=== PATIENT | male | born 1935 | race Caucasian/White ===

== ENCOUNTER → 2017-01-15 | Outpatient (CLI) | payer OTHER ==
[2017-01-15 18:25] LABS: ALBUMIN 3.4 GM/DL (3.2-5.2); ALBUMIN/GLOBULIN RATIO 1.21 (1.00-1.93); BILIRUBIN,TOTAL 1.1 MG/DL (0.2-1.0); CALCIUM LEVEL 8.7 MG/DL (8.8-10.2); CREATININE FOR GFR 1.78 MG/DL (0.70-1.30); GLOMERULAR FILTRATION RATE 39.4 (>42); POTASSIUM SERUM 4.1 MEQ/L (3.5-5.1); TOTAL PROTEIN 6.2 GM/DL (6.4-8.2)
== END ==
LOC: M WUC 08:31
PROVIDERS: ATTEND Physician Assistant
DX: R60.0 Localized edema (principal); I10 Essential (primary) hypertension; E11.9 Type 2 diabetes mellitus without complications

== ENCOUNTER → 2017-07-26 | Outpatient (CLI) | payer MEDICARE, OTHER ==
--- NOTE | 2017-07-26 16:18 | REP ---
Chest two views HISTORY: Heart failure Comparison: 05/02/2012 The lungs are clear. The cardiac silhouette is enlarged . The pulmonary vasculature is normal in appearance. The bony structure is intact. IMPRESSION: Cardiomegaly. Signed by Cholo Laird MD 07/26/2017 04:10 P
[2017-07-26 19:58] LABS: CALCIUM LEVEL 8.9 MG/DL (8.8-10.2); CREATININE FOR GFR 1.91 MG/DL (0.70-1.30); GLOMERULAR FILTRATION RATE 36.3 (>35)
== END ==
LOC: M WUC 15:43
PROVIDERS: ATTEND Nurse Practitioner Family
DX: I50.30 Unspecified diastolic (congestive) heart failure (principal)

== ENCOUNTER → 2017-08-02 | Outpatient (CLI) | payer MEDICARE, OTHER ==
[2017-08-02 10:35] LABS: CALCIUM LEVEL 8.4 MG/DL (8.8-10.2); CREATININE FOR GFR 2.09 MG/DL (0.70-1.30); GLOMERULAR FILTRATION RATE 32.7 (>35); POTASSIUM SERUM 3.7 MEQ/L (3.5-5.1)
== END ==
LOC: M WUC 08:03
PROVIDERS: ATTEND Nurse Practitioner Family
DX: I50.30 Unspecified diastolic (congestive) heart failure (principal)

== ENCOUNTER → 2017-08-21 | Outpatient (CLI) | payer OTHER ==
[2017-08-21 09:59] LABS: CALCIUM LEVEL 8.2 MG/DL (8.8-10.2); CREATININE FOR GFR 2.01 MG/DL (0.70-1.30); GLOMERULAR FILTRATION RATE 34.2 (>35); POTASSIUM SERUM 3.9 MEQ/L (3.5-5.1)
== END ==
LOC: M WUC 08:05
PROVIDERS: ATTEND Nurse Practitioner Family
DX: I50.30 Unspecified diastolic (congestive) heart failure (principal)

== ENCOUNTER → 2017-10-22 | Outpatient (CLI) | payer OTHER ==
[2017-10-22 18:20] LABS: CALCIUM LEVEL 8.7 MG/DL (8.8-10.2); CREATININE FOR GFR 2.17 MG/DL (0.70-1.30); GLOMERULAR FILTRATION RATE 31.3 (>35); POTASSIUM SERUM 4.3 MEQ/L (3.5-5.1)
== END ==
LOC: M WUC 08:25
PROVIDERS: ATTEND Nurse Practitioner Family
DX: I50.30 Unspecified diastolic (congestive) heart failure (principal)

== ENCOUNTER 2017-11-06 11:21 | Inpatient (IN) | payer OTHER ==
[~2017-11-06] VITALS: Ht 167.6 cm; Wt 119.3 kg
[~2017-11-06 11:21] MED LIST: LISINOPRIL 10 MG TAB PO SCH
[2017-11-06] MEDS ORDERED: BENA10TA6 PO (11:37)
[2017-11-06] MEDS ORDERED: ALPR0.25 PO (11:37)
[2017-11-06] MEDS ORDERED: METF10004 PO (11:37)
[2017-11-06] MEDS ORDERED: FURO40TA2 PO (11:37)
[2017-11-06] MEDS: NS 1,000 ML IV SCH ×2 (11:54→15:26)
[2017-11-06 11:57] LABS: BASO % 0.4 % (0.0-1.0); EOS % 0.2 % (0.0-3.0); IMMATURE GRANULOCYTE % 0.5 % (0-0); LYMPH # 0.9 10^3/uL (1.5-4.5); LYMPH % 7.6 % (24.0-44.0); MEAN CORPUSCULAR HEMOGLOBIN 30.9 pg (27.0-33.0); MEAN CORPUSCULAR HGB CONC 32.9 g/dl (32.0-36.5); MEAN CORPUSCULAR VOLUME 93.8 fl (80.0-96.0); MONO # 0.8 10^3/uL (0.0-0.8); MONO % 6.9 % (0.0-5.0); NEUTROPHILS # 9.6 10^3/uL (1.8-7.7); NEUTROPHILS % 84.4 % (36.0-66.0); PLATELET COUNT, AUTOMATED 219 10^3/uL (150-450); WHITE BLOOD COUNT 11.4 10^3/uL (4.0-10.0)
[2017-11-06 11:59] LABS: VENOUS BASE EXCESS -4.5 (-2.0-2.0); VENOUS O2 SATURATION 64.9 % (60.0-80.0); VENOUS PARTIAL PRESSURE CO2 45.4 mmHg (38.0-50.0); VENOUS PARTIAL PRESSURE O2 39.3 mmHg (30.0-50.0); VENOUS TOTAL CO2 23.3 MEQ/L (24.0-28.0)
[2017-11-06 12:15] LABS: ALBUMIN 3.4 GM/DL (3.2-5.2); ALBUMIN/GLOBULIN RATIO 0.97 (1.00-1.93); BILIRUBIN,DIRECT 0.4 MG/DL (0.0-0.2); BILIRUBIN,TOTAL 1.2 MG/DL (0.2-1.0); CALCIUM LEVEL 8.8 MG/DL (8.8-10.2); CREATININE FOR GFR 2.47 MG/DL (0.70-1.30); TOTAL PROTEIN 6.9 GM/DL (6.4-8.2)
--- NOTE | 2017-11-06 13:04 | REP ---
CT of the brain without IV contrast: There are no comparisons. There is no hemorrhage. There is no edema, mass effect or midline shift. There are focal zones of hypo attenuation in the periventricular white matter compatible with chronic microvascular ischemia. The ventricles and sulci are dilated compatible with chronic diffuse volume loss. The cortical stripe is unremarkable. The visualized paranasal sinuses and mastoid air cells are clear. Impression: There is no hemorrhage, acute infarct or mass. There is chronic microvascular ischemia and diffuse volume loss. Signed by Jonathan Martínez MD 11/06/2017 12:55 P
--- NOTE | 2017-11-06 13:17 | REP ---
PORTABLE CHEST X-RAY: SINGLE VIEW HISTORY: Fatigue. COMPARISON STUDY: July 26, 2017 FINDINGS: Moderate cardiac enlargement is again observed. This is unchanged. EKG electrodes are seen. Pulmonary vasculature is cephalized. There is no evidence of pleural effusion or pulmonary edema. No infiltrate is seen. IMPRESSION: Cardiomegaly and cephalization. No evidence of pleural effusion or pulmonary edema. No focal infiltrate. Signed by Arsalan Cantrell MD 11/06/2017 03:02 P
[2017-11-06] MEDS ORDERED: NS 1,000 ML IV ONE (14:45)
[2017-11-06 16:26] VITALS: BP 133/66
[2017-11-06] MEDS ORDERED: GLUCOSE 4 GM CHEW TABLET PO PRN (17:00)
[2017-11-06] MEDS ORDERED: GLUCAGON FOR INJ 1 MG VIAL (J1610) SC PRN (17:00)
[2017-11-06] MEDS ORDERED: DEXTROSE 50% 50 ML SYRINGE IV PRN (17:00)
[2017-11-06 17:07] LABS: FREE T4 0.96 NG/DL (0.76-1.46); MAGNESIUM LEVEL 2.3 MG/DL (1.8-2.4)
[2017-11-06] MEDS: FUROSEMIDE 40 MG/4 ML VIAL (J1940) IV SCH ×2 (17:30→20:57)
[2017-11-06] MEDS: CEPHALEXIN 500 MG CAP PO SCH (17:30)
[2017-11-06] MEDS: HumaLOG INSULIN (NovoLOG) PER UNIT SC SCH ×2 (17:43→21:00)
--- NOTE | 2017-11-06 18:04 | HPEPDOC ---
[facility] Medical History & Physical History and Physical Primary care provider: Yusuf Cerda Date of Admission: 11/06/2017 Attending: Dr. Sumanth Hernández CHIEF COMPLAINT: Weakness and fall with inability to get off the floor HISTORY OF PRESENT ILLNESS: Mr. Caldwell is an 82-year-old male who was brought to the emergency department via ambulance. He is accompanied in the room by his 2 nieces Vale Beaulieu and Steph Mcadams who are very involved in his care, and they provide much of the history as well. Apparently he has been getting progressively weaker and weaker over the past 6 months, the onset has been slow and progressive in nature. The past 1 month he has been even worse, and he has been developing significant lower extremity edema. His primary care provider has been increasing his dose of Lasix however it did not seem to slow the process much. He has been sleeping in a chair for the past few months as he is unable to lie down flat. Last night he got up to go to a different room in his house when he suddenly became weak, went to the floor, and then was unable to get up again. He does believe that he had hit his head, his glasses headphone across the room. He did not lose consciousness, but he did fall asleep during the night. He was found this morning by his niece who checks in on him regularly, and the emergency department was called. He was estimated to be on the floor for approximately 12-14 hours. ALLERGIES: Codeine Penicillins, at about the age of 12 after receiving a dose of penicillin he "blacked out" for short period of time, however when he woke up he does not remember having any trouble breathing, nor did he have any rash. He is unsure as to whether this is related to the illness he had, or the treatment with the penicillin. He was brought back to his family physician who recommended that he not take penicillins again, however no further action was necessary at that time. CODE STATUS: DO NOT INTUBATE, DO NOT RESUSCITATE. Greater than 20-30 minutes was spent filling out a MOLST form with the patient, as well as his 2 nieces, one of which is his healthcare proxy (Vale Beaulieu: home: [phone], cell ) his other niece is Steph Mcadams: Home [phone], cell [phone], please contact them for any status changes. PAST MEDICAL HISTORY: Cardiomegaly Left ventricular hypertrophy Hypertension Diabetes mellitus Chronic kidney disease Panic/anxiety attacks with agoraphobia PAST SURGICAL HISTORY: Hernia repair in the remote past SOCIAL HISTORY: He lives at home alone, he suffers from significant agoraphobia, and now it is to the point where he does not leave his home to a distance of greater than one block, this is especially because even if he is not having a panic attack, he has fear of having a panic attack when he is outside of the home. He used to smoke cigars, however he quit approximately 1 year ago. He does drink approximately 2-3 drinks of alcohol daily, sometimes more, sometimes less. He denies any recreational drug use. He does not have any pets in the home. He lives at home alone, but his 2 nieces check in on him essentially on a daily basis. He previously was a restaurant public safety officer. FAMILY HISTORY: His brother had diabetes, CAD, CHF. His father had heart problems. His mother had a stroke. He had a sister with bladder cancer. REVIEW OF SYSTEMS: Constitutional: Patient denies fevers, chills, night sweats, he believes that his baseline weight is approximately 225, therefore he may have gained approximately 50 pounds over the last 6-9 months. HEENT: Patient denies blurred or double vision, transient visual disturbances, postnasal drip, epistaxis, sore throat, difficulty chewing or swallowing food. Cardiovascular: Patient denies chest discomfort/pain, palpitations. He has had exertional dyspnea for years, he does not have dyspnea at rest. Orthopnea has developed over the past 6 months or so as well as edema of the extremities. He does also suffer from paroxysmal nocturnal dyspnea. Respiratory: Patient denies wheezing, cough, hemoptysis, sputum production. Gastrointestinal: Patient denies nausea, vomiting, diarrhea, constipation, abdominal pain, melena, hematochezia, hematemesis, jaundice. Endocrine: Denies polyphagia, polydipsia, polyuria. Denies heat or cold intolerance. PHYSICAL EXAMINATION: Vitals: Temperature 97.6, pulse 58 irregularly irregular, respiratory rate 20, blood pressure 133/66, pulse oximetry 100% on 2 L nasal cannula General: Awake, alert, oriented. He does not appear to be in any acute distress at this time, he is not using any accessory muscles to breathe, however he does become dyspneic even with sitting upright in the bed and requires assistance to sit upright. HEENT: Head normocephalic atraumatic, pupils equally reactive to light and accommodation, conjunctiva are pink, sclera are nonicteric, buccal mucosa is pink and moist with no lesions in the oropharynx, he does have dentures on the top and multiple missing teeth on the bottom. Hearing is grossly intact to conversation. He does wear eyeglasses. Respiratory: Diminished at the base with dullness to percussion approximately chcf up the chest. No wheezes rales or rhonchi noted though. Cardiovascular: Heart sounds are very distant, I can faintly hear them while taking a pulse. Irregularly irregular. Abdomen: He has significant anasarca, with pitting edema almost up to the level of the nipples. He also has significant panniculitis in approximately the lower one third of the abdomen with erythema and edema quite significant in this area. His scrotum and penis is also significantly edematous, however he is able to urinate sufficiently well using a urinal. Extremities: 4+ pitting edema in the lower extremities bilaterally. He does have some dried blood on the left hallux coming from the medial cuticle, and I suspect that he may have injured his toe when he fell, it is not actively bleeding, there is no surrounding erythema indicative of cellulitis. He does have chronic venous stasis changes of the bilateral lower extremities, he does have what appears to be some venous stasis ulcers that are now healed and now recovered and flaking skin, the patient reports that they used to be weeping, but they are not doing so currently. ELECTROCARDIOGRAM: Atrial fibrillation, rate controlled. Right bundle branch block IMAGING: Huge cardiomegaly, cephalization, however I cannot appreciate any pleural effusion, nor is as indicated in the radiologist's report. ASSESSMENT/PLAN: 1. Congestive heart failure. BNP significantly elevated. Most recent progress note from the office of Yusuf Cerda indicates "unspecified diastolic congestive heart failure". Echocardiogram ordered. Will start the patient on 40 mg IV furosemide every 4 hours with a net negative to 3 L per 24 hours. Portable chest x-ray does not show a pleural effusion, the patient is unable to stand for a PA and lateral. Troponins in the ED are negative, EKG is not indicative of an AK at this time. 2. Anasarca. We will diurese as indicated above 3. Chronic kidney disease, stage IV. He does appear slightly worse than baseline (2.05-2.15), we will continue to check this on a daily basis. I suspect that this will improve with diuresis. His home dose of benazepril has been held however as this is nephrotoxic 4. Panniculitis. The patient had an irregular reaction to penicillin when he was 12 years old, however even the patient is unsure of the validity of the penicillin allergy. Will attempt Keflex, and monitor the patient very closely. 5. Cardiomegaly and left ventricular hypertrophy. Echocardiogram has been ordered. 6. Hypertension. Will hold his Benzapril at this time given his worsening renal function. 7. Diabetes mellitus. Hemoglobin A1c was 6.5 upon arrival. We will discontinue his metformin during his hospitalization and continue with sliding scale insulin. If he has not required any insulin coverage for the next day or so, then consideration may be made to discontinuing the fingersticks. 8. Panic attacks with agoraphobia. The only thing he takes his a half a pill of Xanax on very rare occasion when he needs to go out of the house. We will continue with Xanax as needed during his hospitalization. 9. Morbid obesity. Complicating care. 10. End-of-life discussion. The patient, his 2 nieces (one of which is his healthcare proxy), and myself did have an extensive conversation about his medical orders for life-sustaining treatment, and a MOLST form was filled out and put in the chart. He wishes to be DNR/DNI with limited medical interventions. He is okay to be sent to the hospital if necessary based on MOLST orders, he does not wish to have a feeding tube, a trial period of IV fluids is allowed, and antibiotic use is allowed. 11. DVT prophylaxis with renally dosed Lovenox My preceptor for this patient encounter was physically present in the building during the encounter and was fully available. As needed, all aspects of the patient interview, examination, medical decision making process, and medical care plan development were reviewed and approved by the preceptor. Preceptor is aware and concurs with the plan as stated in the body of this note and will attest to such by his/her cosignature. Vital Signs Vital Signs Date Time Temp Pulse Resp B/P (MAP) Pulse Ox O2 Delivery O2 Flow Rate FiO2 11/06/17 16:26 97.6 58 20 133/66 (88) 100 Nasal Cannula 2.0 Laboratory Data Labs 24H Laboratory Tests 2 11/06/17 11:38: Immature Granulocyte % (Auto) 0.5H, White Blood Count 11.4H, Red Blood Count 4.70, Hemoglobin 14.5, Hematocrit 44.1, Mean Corpuscular Volume 93.8, Mean Corpuscular Hemoglobin 30.9, Mean Corpuscular Hemoglobin Concent 32.9, Red Cell Distribution Width 16.0H, Platelet Count 219, Neutrophils (%) (Auto) 84.4H, Lymphocytes (%) (Auto) 7.6L, Monocytes (%) (Auto) 6.9H, Eosinophils (%) (Auto) 0.2, Basophils (%) (Auto) 0.4, Neutrophils # (Auto) 9.6H, Lymphocytes # (Auto) 0.9L, Monocytes # (Auto) 0.8, Eosinophils # (Auto) 0.0, Basophils # (Auto) 0.0, Immature Granulocyte # (Auto) 0.1H, Nucleated Red Blood Cells % (auto) 0.0, Blood Gas Bicarbonate Standard 20.0, Venous Blood pH 7.302L, Venous Blood Partial Pressure CO2 45.4, Venous Blood Partial Pressure O2 39.3, Venous Blood Total Carbon Dioxide 23.3L, Venous Blood HCO3 21.9L, Venous Blood Oxygen Saturation 64.9, Venous Blood Base Excess -4.5L, Anion Gap 13, Glomerular Filtration Rate 27.0L, Estimated Mean Plasma Glucose 140H, Hemoglobin A1c 6.5, Lactic Acid Level 3.3*H, Calcium Level 8.8, Aspartate Amino Transf (AST/SGOT) 40H, Alanine Aminotransferase (ALT/SGPT) 31, Alkaline Phosphatase 150H, Total Bilirubin 1.2H, Direct Bilirubin 0.4H, Total Creatine Kinase 464H, Creatine Kinase MB 10.6H, Creatine Kinase MB Relative Index 2.28, Troponin I 0.05, Total Protein 6.9, Albumin 3.4, Albumin/Globulin Ratio 0.97L 11/06/17 11:59: CD-Uhr-X-Type Natriuretic Peptide [id number] 11/06/17 16:13: Lactic Acid Followup at 4 Hours 2.1*H, Magnesium Level 2.3, Thyroid Stimulating Hormone (TSH) 3.560, Free Thyroxine 0.96 11/06/17 17:41: Bedside Glucose (Misc Panel) 96 CBC/BMP Laboratory Tests 11/06/17 11:38 Red Blood Count 4.70, Mean Corpuscular Volume 93.8, Mean Corpuscular Hemoglobin 30.9, Mean Corpuscular Hemoglobin Concent 32.9, Red Cell Distribution Width 16.0 H, Neutrophils (%) (Auto) 84.4 H, Lymphocytes (%) (Auto) 7.6 L, Monocytes ( %) (Auto) 6.9 H, Eosinophils (%) (Auto) 0.2, Basophils (%) (Auto) 0.4, Neutrophils # (Auto) 9.6 H, Lymphocytes # (Auto) 0.9 L, Monocytes # (Auto) 0.8, Eosinophils # (Auto) 0.0, Basophils # (Auto) 0.0 Microbiology Microbiology 11/06/17 Blood Culture, Received Pending 11/06/17 Blood Culture, Received Pending Home Medications Scheduled Benazepril HCl (Benazepril HCl) 10 Mg Tab, 10 MG PO DAILY Furosemide (Furosemide) 40 Mg Tab, 20 MG PO BID Metformin Hydrochloride (Metformin HCl) 1,000 Mg Tab, 1,000 MG PO BID Scheduled PRN Alprazolam (Alprazolam) 0.25 Mg Tab, 0.25 MG PO PRN PRN for ANXIETY/AGITATION Allergies Coded Allergies: Codeine (Verified Allergy, Intermediate, hives, 11/06/17) Penicillins (Verified Allergy, Intermediate, hives, 11/06/17) RG CARROLL DO Nov 06, 2017 18:04
[2017-11-07] VITALS: BP 133/62
[2017-11-07] MEDS: FUROSEMIDE 40 MG/4 ML VIAL (J1940) IV SCH ×6 (00:44→20:01)
[2017-11-07 04:00] VITALS: BP 121/65
[2017-11-07 05:06] LABS: MEAN CORPUSCULAR HEMOGLOBIN 30.6 pg (27.0-33.0); MEAN CORPUSCULAR HGB CONC 32.8 g/dl (32.0-36.5); MEAN CORPUSCULAR VOLUME 93.4 fl (80.0-96.0); PLATELET COUNT, AUTOMATED 199 10^3/uL (150-450); RED CELL DISTRIBUTION WIDTH 16.1 % (11.5-14.5); WHITE BLOOD COUNT 8.5 10^3/uL (4.0-10.0)
[2017-11-07 05:31] LABS: CALCIUM LEVEL 8.6 MG/DL (8.8-10.2); CREATININE FOR GFR 2.13 MG/DL (0.70-1.30); POTASSIUM SERUM 3.5 MEQ/L (3.5-5.1)
[2017-11-07] MEDS: CEPHALEXIN 500 MG CAP PO SCH ×2 (06:30→17:50)
[2017-11-07 08:00] VITALS: BP 118/58
[2017-11-07] MEDS: HumaLOG INSULIN (NovoLOG) PER UNIT SC SCH ×4 (08:49→21:00)
[2017-11-07] MEDS ORDERED: ENOXAPARIN 30 MG/0.3 ML SYR (J1650) SC SCH (09:00)
[2017-11-07] MEDS: ALPRAZolam 0.25 MG TAB PO PRN (11:36)
[2017-11-07 12:00] VITALS: BP 127/60
[2017-11-07] MEDS ORDERED: OXAZEPAM 10 MG CAP PO PRN (15:15)
--- NOTE | 2017-11-07 15:16 | IPNPDOC ---
Subjective Date Seen The patient was seen on 11/07/17. Subjective Chief Complaint/HPI The patient is a 82-year-old male admitted with a reason for visit of Chf Panniculitis. Events since last encounter Patient seen and examined at the bedside. States that his lower extremity edema has been progressing over the last 6 months, and notes that he has gained 40 pounds. He acknowledges that he has avoided medical treatment as he is not fond of going to doctors. He reports that the lower extremity edema and shortness of breath has somewhat improved since being hospitalized. Objective Physical Examination General Exam: Positive: Alert, Cooperative, No Acute Distress ENT Exam: Positive: Atraumatic, Mucous membr. moist/pink Neck Exam: Positive: JVD Chest Exam: Positive: Diminished Heart Exam: Positive: Rate Normal, Normal S1, Normal S2 Abdomen Exam: Positive: Other (Edema noted in the lower abdominal area wall from anasarca), Negative: Tenderness Male Exam: Negative: Normal Genital Exam (Significant scrotal, pelvic edema 2/2 anasarca) Extremity Exam: Positive: Tenderness (chronic venous static changes with weeping noted in the lower extremities bilaterally), Swelling (4+ pitting edema B/L) Psych Exam: Positive: Oriented x 3 Assessment /Plan Plan/VTE VTE Prophylaxis Ordered?: Yes Plan Anasarca 2/2 Decompensated Congestive heart failure, unspecified Echocardiogram ordered 40 mg IV furosemide every 4 hours with a net negative of 3 L per 24 hours. Monitor I/O's Fluid Restriction Nephro consulted for IV diuresis in the setting of CKD Chronic kidney disease, stage IIIB Baseline Serum Cr ~ 2.0 Nephrotoxic therapy held at this time--except for IV Diuretics Nephro on board Panniculitis 2/2 Anasarca Keflex ordered Hypertension Cont Current Regimen Diabetes mellitus Insulin sliding scale Panic attacks with agoraphobia Xanax prn History of Alcohol Abuse Counseled on cessation [facility] Protocol Serax ordered Morbid obesity Complicating care. DVT prophylaxis Heparin subcutaneous Code Status: DNR/DNI Poor Halfway Prognosis I did have an extensive conversation with the patient, and his niece at the bedside. At this time, the patient states that he is willing to give medical treatment a try. I did explain to him that the patient will need significant IV diuresis, and given his underlying CKD the patient could require HD in the future. Patient and niece have verbalized understanding of the same. All questions answered to their satisfaction. PFS consulted. VS, I&O, 24H, Fishbone Vital Signs/I&O Vital Signs Date Time Temp Pulse Resp B/P (MAP) Pulse Ox O2 Delivery O2 Flow Rate FiO2 11/07/17 12:00 97.9 60 18 127/60 (82) 98 Nasal Cannula 2.0 I&O- Last 24 Hours up to 6 AM 11/08/17 06:00 Intake Total 960 ml Output Total 1200 ml Balance -240 ml Laboratory Data 24H LABS Laboratory Tests 2 11/06/17 16:13: Lactic Acid Followup at 4 Hours 2.1*H, Magnesium Level 2.3, Thyroid Stimulating Hormone (TSH) 3.560, Free Thyroxine 0.96 11/06/17 17:41: Bedside Glucose (Misc Panel) 96 11/06/17 20:59: Bedside Glucose (Misc Panel) 130H 11/07/17 04:33: Nucleated Red Blood Cells % (auto) 0.0, Anion Gap 11, Glomerular Filtration Rate 32.0L, Blood Urea Nitrogen 54H, Creatinine 2.13H, Sodium Level 145, Potassium Level 3.5, Chloride Level 109H, Carbon Dioxide Level 25, Calcium Level 8.6L 11/07/17 11:38: Urine Appearance CLEAR, Urine Color STRAW, Urine pH 5.0, Urine Specific [place] 1.005, Urine Protein NEGATIVE, Urine Glucose (UA) NEGATIVE, Urine Ketones NEGATIVE, Urine Urobilinogen 0.2, Urine Bilirubin NEGATIVE, Urine Leukocyte Esterase TRACEH, Urine Blood 1+H, Urine Nitrite NEGATIVE, Urine WBC (Auto) 1, Urine RBC (Auto) 1, Urine Hyaline Casts (Auto) 1, Urine Bacteria (Auto) NEGATIVE , Urine Squamous Epithelial Cells 0, Urine Sperm (Auto) , Urine Random Creatinine 16.5 11/07/17 11:45: Lactic Acid Level 1.6 11/07/17 11:49: Bedside Glucose (Misc Panel) 68L CBC/BMP Laboratory Tests 11/07/17 04:33 Red Blood Count 4.38, Mean Corpuscular Volume 93.4, Mean Corpuscular Hemoglobin 30.6, Mean Corpuscular Hemoglobin Concent 32.8, Red Cell Distribution Width 16.1 H, Calcium Level 8.6 L Microbiology Microbiology 11/06/17 Blood Culture - Preliminary, Resulted No growth after 24 hours . All specim... 11/06/17 Blood Culture - Preliminary, Resulted No growth after 24 hours . All specim... PENNY LANG MD Nov 07, 2017 15:16
--- NOTE | 2017-11-07 15:59 | REP ---
RENAL AND BLADDER ULTRASOUND: Real-time sonographic of the kidneys performed and demonstrates both kidneys to be normal in size and echotexture, right kidney measuring 11.2 x 6.0 x 5.3 cm and left kidney 11.0 x 5.3 x 6.5 cm. There is no hydronephrosis bilaterally. No other gross renal abnormality is seen. This study is limited due to patient body habitus and immobility. There is mild free fluid in the left lower quadrant. Urinary bladder measures 13.2 x 7.5 x 8.5 cm with no mass or calculus. IMPRESSION: No hydronephrosis. No bladder abnormality seen. Mild free fluid in the left lower quadrant. Signed by Jonathan Linares MD 11/08/2017 09:05 A
[2017-11-07 16:00] VITALS: BP 135/65
--- NOTE | 2017-11-07 17:25 | CR ---
DATE OF CONSULTATION: 11/07/2017 REQUESTING PHYSICIAN: Dr. Lloyd Wong CONSULTING PHYSICIAN: Dr. Brady REASON FOR CONSULTATION: Management of fluid overload in this patient with chronic kidney disease. CHIEF COMPLAINT: The patient was admitted yesterday because of weakness and fall, and inability to get off the floor. Note, history was obtained from patient's daughter and from primary medical team. Patient was unable to provide any reliable history. HISTORY OF THE PRESENT ILLNESS: Mr. Caldwell is an 82-year-old male with a past medical history of chronic kidney disease, best baseline creatinine of around 2 as of July 2017. The patient does not followup with nephrology as an outpatient. His chronic kidney disease is being managed by his primary care provider (PCP). The patient also reports that he possibly has a history of congestive heart failure. The patient was brought into the emergency room yesterday by ambulance. He was accompanied by his nieces and as documented in the chart, the patient was feeling very weak, lethargic, he fell down, he was not able to get off the floor. The patient has been progressively getting worse for the last 1 month with worsening lower extremity edema, shortness of breath, orthopnea, inability to lay down flat, sleeping most of the time in chair. When patient got initial labs done in the emergency room, he was found to have a creatinine of 2.4. Patient also had lactic acidosis. He was initially resuscitated with 1 liter of fluid, but later on evaluation he was found to have generalized anasarca and because of possible congestive heart failure, the patient has been started on intravenous (IV) Lasix. Latest echocardiogram report and left ventricular (LV) ejection fraction is not known at this time. Nephrology service was called for further help in the management of this patient. I saw and examined the patient today, morning, at the bedside. He was in mild respiratory distress; otherwise he was hemodynamically stable. PAST MEDICAL HISTORY: Patient has a past medical history of chronic kidney disease, stage III with the best baseline creatinine of around 2, most likely congestive heart failure, hypertension, diabetes mellitus, and history of anxiety attacks. PAST SURGICAL HISTORY: History of hernia repair in the past. ALLERGIES: The patient is allergic to CODEINE and PENICILLIN. FAMILY HISTORY: No significant family history of end-stage renal disease requiring hemodialysis. Positive history of heart disease in the father. Mother had a stroke. SOCIAL HISTORY: Patient lives alone. Patient has significant agoraphobia; he takes Xanax when he has to go out of home. Patient drinks every day, about 2-3 drinks of alcohol. There is no history of illicit drug abuse. The patient has two nieces who sometimes come and check on him. REVIEW OF SYSTEMS: CONSTITUTIONAL: Patient denies any fever, chills, or rigors. He does report weakness, and he does report weight gain. EYES: He denies any blurry vision or double vision. ENT: He denies any dysphagia, odynophagia. CARDIOVASCULAR: Patient does report orthopnea and lower extremity edema. He denies any chest pain or palpitations. RESPIRATORY: The patient does report shortness of breath. He denies any cough or wheezing. GASTROINTESTINAL: He denies any nausea, vomiting, or abdominal pain. GENITOURINARY: He denies any dysuria, hematuria, but he does report scrotal edema. ENDOCRINE: There is a history of diabetes. There is no history of thyroid disease. HEMATOLOGICAL/ONCOLOGICAL: There is no history of easy bruising or bleeding. PSYCHIATRIC: The patient has agoraphobia. SKIN: There are no rashes or ulcerations. All other review of systems is negative. PHYSICAL EXAMINATION: GENERAL: The patient is awake, he is confused, slightly disoriented, able to answer few questions, very forgetful. VITAL SIGNS: Temperature is 97.5 degrees Fahrenheit, blood pressure is 118/58, pulse is 60, respiratory rate of 18, saturating 97% on nasal cannula at 2 liters. INTAKE AND OUTPUT: Urine output yesterday was 675 mL. Urine output so far today since overnight is 2.2 liters. Weight on the bed scale is 121.3 kg. HEAD AND NECK EXAM: Extraocular muscles intact. Pupils equally round and reactive to light. Mucous membranes are very dry. Neck is supple. There is significantly elevated jugular venous distention (JVD). CARDIOVASCULAR: S1, S2. Irregularly irregular heart rate, grade 2/6 systolic murmur. The patient has 3+ edema on the bilateral lower extremities. RESPIRATORY: Decreased breath sounds at the bases with some crepitations on deep inspiration. ABDOMEN: Soft. Positive bowel sounds. Nontender. The patient has positive abdominal wall edema, mild amount of ascites with dullness to percussion in the flanks. GENITOURINARY: Patient has scrotal and penile edema. MUSCULOSKELETAL: No clubbing or cyanosis. Patient has 3+ edema on the bilateral lower extremities up to thighs. CENTRAL NERVOUS SYSTEM: Patient is able to communicate, but he is very forgetful. No focal deficit. Power is 5/5 in bilateral upper extremities. SKIN: No rashes or ulcers. LYMPH NODES: No significant cervical, axillary or inguinal lymphadenopathy. PSYCHIATRIC: Patient has appropriate mood, but he is forgetful. LAB REVIEW: CBC showed a WBC of 8.5, hemoglobin 13.4, platelets of 199. Urinalysis showed 1+ blood, no proteins, trace amount of leukocyte esterase. VBG done yesterday showed a pH of 7.3. BMP showed sodium 145, potassium 3.5, chloride 109, bicarbonate 25, BUN 54, creatinine is 2.1, glucose is 116. Patient had a lactate on arrival. Repeat lactate level is 1.6, calcium 8.6, magnesium 2.3. TSH is 3.5, free T4 is 0.96. Pro-BNP done yesterday was more than 13,000. Microbiology: Blood cultures are negative so far. IMAGING: Patient got a chest x-ray done yesterday, which shows a massive cardiomegaly. Renal ultrasound was done today, which showed no hydronephrosis, no bladder abnormality. There was mild free fluid in the left lower quadrant. CURRENT INPATIENT MEDICATIONS: Patient's medications were all reviewed by me. He is on Xanax as needed, Keflex 500 mg by mouth every 12 hours, Lasix 40 mg IV every 4 hours, insulin Lispro sliding scale, lisinopril has been held, and oxazepam 10 mg by mouth every 6 hours as needed for agitation. ASSESSMENT: An 82-year-old male with a past medical history of chronic kidney disease stage III, baseline creatinine of 2, hypertension, congestive heart failure, diabetes mellitus, admitted at this time because of anasarca, acute kidney injury and lactic acidosis. PLAN: 1. Acute kidney injury. It is most likely secondary to a combination of use of lisinopril and metformin at home and cardiorenal syndrome. Patient's baseline creatinine is 2. He came in with a creatinine of 2.4. His creatinine is slowly improving to 2.1. It is okay to continue the diuretics at this time. Renal and bladder ultrasound did not show any abnormality. 2. Decompensated systolic heart failure. Patient has a massive cardiomegaly on chest x-ray. Most likely he has a reduced ejection fraction. Echocardiogram report is pending. Continue the diuretics at this time. Patient had generalized anasarca, which is most likely cardiogenic. There is no evidence of proteinuria on today's urinalysis. 3. Hypertension. Patient's blood pressure is acceptable at this time and would further improve with aggressive diuresis. Lisinopril is on hold at this time because of acute kidney injury. If needed for low ejection fraction, low dose of angiotensin-converting enzyme (AUGUSTINA) inhibitors will be restarted. 4. Diabetes mellitus, type 2. Patient came in with lactic acidosis, which is most likely secondary to use of metformin and patient's daily consumption of alcohol. Avoid using metformin in this patient who has advanced chronic kidney disease III to early stage IV and because of history of alcohol abuse, we should avoid using metformin in the future. Continue insulin sliding scale. 5. History of panic attacks and agoraphobia. Okay to continue Xanax as needed. 6. History of daily alcohol use. Patient is currently on oxazepam as needed for alcohol withdrawal. Thank you for involving us in the care of this patient. We shall be happy to follow the patient along with you tomorrow morning.
[2017-11-07 20:00] VITALS: BP 118/55
[2017-11-07] MEDS: HEPARIN SOD (PORCINE) 5000 UNITS/ML VIAL SQ SCH (21:44)
[2017-11-08] VITALS: BP 134/64
[2017-11-08 04:00] VITALS: BP 141/69
[2017-11-08] MEDS: HEPARIN SOD (PORCINE) 5000 UNITS/ML VIAL SQ SCH (05:04)
[2017-11-08] MEDS: FUROSEMIDE 40 MG/4 ML VIAL (J1940) IV SCH ×4 (05:04→12:38)
[2017-11-08] MEDS: CEPHALEXIN 500 MG CAP PO SCH (05:04)
[2017-11-08 06:03] LABS: MEAN CORPUSCULAR HEMOGLOBIN 30.6 pg (27.0-33.0); MEAN CORPUSCULAR HGB CONC 32.7 g/dl (32.0-36.5); MEAN CORPUSCULAR VOLUME 93.8 fl (80.0-96.0); PLATELET COUNT, AUTOMATED 182 10^3/uL (150-450); RED CELL DISTRIBUTION WIDTH 16.1 % (11.5-14.5); WHITE BLOOD COUNT 7.9 10^3/uL (4.0-10.0)
[2017-11-08 06:25] LABS: CALCIUM LEVEL 8.4 MG/DL (8.8-10.2); CREATININE FOR GFR 2.18 MG/DL (0.70-1.30); GLOMERULAR FILTRATION RATE 31.1 (>35); MAGNESIUM LEVEL 1.7 MG/DL (1.8-2.4); POTASSIUM SERUM 3.4 MEQ/L (3.5-5.1)
[2017-11-08 08:00] VITALS: BP 124/62
[2017-11-08] MEDS ORDERED: POTASSIUM CHLORIDE 10 MEQ SR TABLET PO ONE (08:00)
[2017-11-08] MEDS: HumaLOG INSULIN (NovoLOG) PER UNIT SC SCH ×2 (08:53→12:39)
[2017-11-08] MEDS: MAG SULF 1GM/100ML (MAG RUN) 1 GM in APPROPRIATE DILUENT 1 EA IV SCH ×2 (08:54→10:28)
[2017-11-08 12:00] VITALS: BP 135/62
[2017-11-08] MEDS ORDERED: LORazepam 2 MG/ML VIAL (J2060) IV PRN (13:30)
[2017-11-08] MEDS ORDERED: NYSTATIN CREAM 15 GM TOP PRN (13:30)
[2017-11-08] MEDS ORDERED: SCOPOLAMINE 1.5 MG TRANSDERMAL TD PRN (13:30)
[2017-11-08] MEDS ORDERED: ONDANSETRON 4MG/2ML VIAL (J2405) IV PRN (13:30)
--- NOTE | 2017-11-08 13:58 | IPNPDOC ---
Subjective Date Seen The patient was seen on 11/08/17. Subjective Chief Complaint/HPI The patient is a 82-year-old male admitted with a reason for visit of Chf Panniculitis. Events since last encounter Patient seen and examined at the bedside. Reports that he had a rough night last night due to all the urinating from diuretic therapy. He notes that he just wants the medical therapy to be stopped and wants to be placed on comfort measures only. Objective Physical Examination General Exam: Positive: Alert, Cooperative, No Acute Distress ENT Exam: Positive: Atraumatic, Mucous membr. moist/pink Neck Exam: Positive: JVD Chest Exam: Positive: Diminished Heart Exam: Positive: Rate Normal, Normal S1, Normal S2 Abdomen Exam: Positive: Other (Edema noted in the lower abdominal area wall from anasarca), Negative: Tenderness Male Exam: Negative: Normal Genital Exam (Significant scrotal, pelvic edema 2/2 anasarca) Extremity Exam: Positive: Tenderness (chronic venous static changes with weeping noted in the lower extremities bilaterally), Swelling (4+ pitting edema B/L) Psych Exam: Positive: Oriented x 3 Assessment /Plan Plan/VTE VTE Prophylaxis Ordered?: Yes Plan Anasarca 2/2 Decompensated Congestive heart failure, unspecified Chronic kidney disease, stage IIIB Panniculitis 2/2 Anasarca Hypertension Diabetes mellitus Panic attacks with agoraphobia History of Alcohol Abuse Morbid obesity Code Status: Comfort Measures Only, MOLST Form signed and dated on 11/08/17 Poor Group Home Prognosis I did extensively discuss the patient's medical condition this morning with him , and his niece at the bedside. At this time, the patient states that he does not want further medical treatment such as IV diuretic therapy, possible hemodialysis in the future, and a prolonged hospital stay. He reports that he was under the assumption that he was coming to the hospital for, "a quick check up." However, given the extent of his anasarca and underlying CKD, the patient has opted to be comfort measures only at this time, and has asked us to consult hospice. VS, I&O, 24H, Fishbone Vital Signs/I&O Vital Signs Date Time Temp Pulse Resp B/P (MAP) Pulse Ox O2 Delivery O2 Flow Rate FiO2 11/08/17 12:00 98.8 71 20 135/62 (86) 98 Nasal Cannula 2.0 I&O- Last 24 Hours up to 6 AM 11/09/17 06:00 Intake Total 390 ml Output Total 1000 ml Balance -610 ml Laboratory Data 24H LABS Laboratory Tests 2 11/07/17 16:28: Bedside Glucose (Misc Panel) 106 11/07/17 20:07: Bedside Glucose (Misc Panel) 140H 11/08/17 05:53: Nucleated Red Blood Cells % (auto) 0.0, Anion Gap 9, Glomerular Filtration Rate 31.1L, Blood Urea Nitrogen 48H, Creatinine 2.18H, Sodium Level 144, Potassium Level 3.4L, Chloride Level 109H, Carbon Dioxide Level 26, Calcium Level 8.4L, Magnesium Level 1.7L 11/08/17 12:18: Bedside Glucose (Misc Panel) 114H CBC/BMP Laboratory Tests 11/08/17 05:53 Red Blood Count 4.34, Mean Corpuscular Volume 93.8, Mean Corpuscular Hemoglobin 30.6, Mean Corpuscular Hemoglobin Concent 32.7, Red Cell Distribution Width 16.1 H, Calcium Level 8.4 L Microbiology Microbiology 11/06/17 Blood Culture - Preliminary, Resulted No Growth after 48 hours. All Specime... 11/06/17 Blood Culture - Preliminary, Resulted No Growth after 48 hours. All Specime... PENNY LANG MD Nov 08, 2017 13:58
[2017-11-08] MEDS: ALPRAZolam 0.25 MG TAB PO PRN ×2 (15:43→22:41)
[2017-11-08 16:00] VITALS: BP 124/64
--- NOTE | 2017-11-09 04:21 | ECGEPIP ---
Stationary ECG Study [facility] - ED Test Date: 2017-11-06 Pat Name: SHAMEKA KINSEY Department: Room: - Gender: M Technical Information Specialist: GEORGINA : [id number] Requested By: Quinn Fontanez Order Number: [id number] Reading MD: Quinn Vincent Measurements Intervals [place] Rate: 63 P: 158 CT: 122 QRS: 254 QRSD: 112 T: 60 QT: 408 QTc: 419 Interpretive Statements ATRIAL FIBRILLATION INCOMPLETE RIGHT BUNDLE BRANCH BLOCK RIGHT VENTRICULAR HYPERTROPHY AND ST-T CHANGE ANTEROLATERAL MYOCARDIAL INFARCTION, OF INDETERMINATE AGE NO PRIORS FOR COMPARISON Electronically Signed On 11-09-2017 4:21:07 EST by Quinn Vincent
[2017-11-09] MEDS: ALPRAZolam 0.25 MG TAB PO PRN (11:00)
--- NOTE | 2017-11-09 11:22 | IPNPDOC ---
Subjective Date Seen The patient was seen on 11/09/17. Subjective Chief Complaint/HPI The patient is a 82-year-old male admitted with a reason for visit of Chf Panniculitis. Events since last encounter Patient seen and examined at the bedside. States that he is uncomfortable about being in the hospital, but notes that his pain has been relatively controlled. In addition, the patient understands that hospice has been consulted, and we will be talking to him and his nieces later today. Does not offer any other acute complaints at this time. Objective Physical Examination General Exam: Positive: Alert, Cooperative, No Acute Distress ENT Exam: Positive: Atraumatic, Mucous membr. moist/pink Neck Exam: Positive: JVD Chest Exam: Positive: Diminished Heart Exam: Positive: Rate Normal, Normal S1, Normal S2 Abdomen Exam: Positive: Other (Edema noted in the lower abdominal area wall from anasarca), Negative: Tenderness Male Exam: Negative: Normal Genital Exam (Significant scrotal, pelvic edema 2/2 anasarca) Extremity Exam: Positive: Tenderness (chronic venous static changes with weeping noted in the lower extremities bilaterally), Swelling (4+ pitting edema B/L) Psych Exam: Positive: Oriented x 3 Assessment /Plan Plan/VTE VTE Prophylaxis Ordered?: Yes Plan Anasarca 2/2 Decompensated Congestive heart failure, unspecified Chronic kidney disease, stage IIIB Panniculitis 2/2 Anasarca Hypertension Diabetes mellitus Panic attacks with agoraphobia History of Alcohol Abuse Morbid obesity Code Status: Comfort Measures Only, MOLST Form signed and dated on 11/08/17 Poor Fpc Prognosis Patient has decided on Comfort Measures Only on 11/08/17. PFS/Hospice consulted. We will continue to provide the patient with supportive measures at this time. VS, I&O, 24H, Fishbone Vital Signs/I&O Vital Signs Date Time Temp Pulse Resp B/P (MAP) Pulse Ox O2 Delivery O2 Flow Rate FiO2 11/08/17 21:00 Nasal Cannula 2.0 11/08/17 16:00 98.2 74 20 124/64 (84) 97 Laboratory Data 24H LABS Laboratory Tests 2 11/08/17 12:18: Bedside Glucose (Misc Panel) 114H Microbiology Microbiology 11/06/17 Blood Culture - Preliminary, Resulted No Growth after 48 hours. All Specime... 11/06/17 Blood Culture - Preliminary, Resulted No Growth after 48 hours. All Specime... PENNY LANG MD Nov 09, 2017 11:22
[2017-11-09 14:00] VITALS: BP 138/72
[2017-11-09] MEDS: MORPHINE 2 MG/ML 1ML SYRINGE IV PRN (14:15)
[2017-11-09] MEDS ORDERED: BISACODYL 10 MG SUPP PR PRN (14:30)
[2017-11-09] MEDS ORDERED: SENNA 8.6 MG TAB (SENOKOT) PO PRN (14:30)
[2017-11-09] MEDS: ALPRAZolam 0.25 MG TAB PO SCH (21:18)
[2017-11-10] MEDS: MORPHINE 2 MG/ML 1ML SYRINGE IV PRN (03:44)
[2017-11-10] MEDS ORDERED: SCOPOLAMINE 1MG TRANSDERMAL PATCH TD PRN (08:45)
[2017-11-10] MEDS: ALPRAZolam 0.25 MG TAB PO SCH ×2 (08:46→20:53)
[2017-11-10] MEDS ORDERED: MORP20SO3 PO (11:44)
[2017-11-10] MEDS ORDERED: LORA0.5T11 PO (11:44)
[2017-11-10] MEDS ORDERED: HYOS125TA PO (11:44)
--- NOTE | 2017-11-10 11:47 | IPNPDOC ---
Subjective Date Seen The patient was seen on 11/10/17. Subjective Chief Complaint/HPI The patient is a 82-year-old male admitted with a reason for visit of Chf Panniculitis. Events since last encounter Patient seen and examined at bedside. Patient is noted to be drowsy, and asleep this morning upon evaluation. Denies any acute complaints of pain. Objective Physical Examination General Exam: Positive: No Acute Distress ENT Exam: Positive: Atraumatic, Mucous membr. moist/pink Neck Exam: Positive: JVD Chest Exam: Positive: Diminished Heart Exam: Positive: Rate Normal, Normal S1, Normal S2 Abdomen Exam: Positive: Other (Edema noted in the lower abdominal area wall from anasarca), Negative: Tenderness Male Exam: Negative: Normal Genital Exam (Significant scrotal, pelvic edema 2/2 anasarca) Extremity Exam: Positive: Tenderness (chronic venous static changes with weeping noted in the lower extremities bilaterally), Swelling (4+ pitting edema B/L) Assessment /Plan Plan/VTE VTE Prophylaxis Ordered?: Yes Plan Anasarca 2/2 Decompensated Congestive heart failure, unspecified Chronic kidney disease, stage IIIB Panniculitis 2/2 Anasarca Hypertension Diabetes mellitus Panic attacks with agoraphobia History of Alcohol Abuse Morbid obesity Code Status: Comfort Measures Only, MOLST Form signed and dated on 11/08/17 Poor Skilled Nursing Prognosis Patient has decided on Comfort Measures Only on 11/08/17. PFS/Hospice consulted. The patient does have a hospice bed available for 11/11/17. We will continue to provide the patient with supportive measures at this time. VS, I&O, 24H, Fishbone Vital Signs/I&O Vital Signs Date Time Temp Pulse Resp B/P (MAP) Pulse Ox O2 Delivery O2 Flow Rate FiO2 11/10/17 03:54 12 11/09/17 22:30 Nasal Cannula 2.0 11/09/17 14:00 98.4 67 138/72 (94) 96 Laboratory Data Microbiology Microbiology 11/06/17 Blood Culture - Preliminary, Resulted No Growth after 72 hours. All specime... 11/06/17 Blood Culture - Preliminary, Resulted No Growth after 72 hours. All specime... PENNY LANG MD Nov 10, 2017 11:47
[2017-11-11] MEDS: MORPHINE 2 MG/ML 1ML SYRINGE IV PRN (00:11)
[2017-11-11 05:47] LABS: MEAN CORPUSCULAR HEMOGLOBIN 30.4 pg (27.0-33.0); MEAN CORPUSCULAR HGB CONC 31.8 g/dl (32.0-36.5); MEAN CORPUSCULAR VOLUME 95.8 fl (80.0-96.0); PLATELET COUNT, AUTOMATED 161 10^3/uL (150-450); RED CELL DISTRIBUTION WIDTH 16.4 % (11.5-14.5); WHITE BLOOD COUNT 8.5 10^3/uL (4.0-10.0)
[2017-11-11 05:57] LABS: CALCIUM LEVEL 8.3 MG/DL (8.8-10.2); CREATININE FOR GFR 1.87 MG/DL (0.70-1.30); GLOMERULAR FILTRATION RATE 37.2 (>35); POTASSIUM SERUM 3.6 MEQ/L (3.5-5.1)
[2017-11-11] MEDS: ALPRAZolam 0.25 MG TAB PO SCH (08:37)
[2017-11-11] MEDS ORDERED: XANA0.25 PO (10:31)
[2017-11-11 11:13] VITALS: BP 118/55
--- NOTE | 2017-11-11 14:40 | DS.PDOC ---
Discharge Summary General Date of Admission Nov 06, 2017 at 15:15 Date of Discharge 11/11/17 Specialist/Consultants Involve: NARGIS SALEEM MD Discharge Summary PROCEDURES PERFORMED DURING STAY: None. ADMITTING/DISCHARGE DIAGNOSES: Anasarca 2/2 Decompensated Congestive heart failure, unspecified Chronic kidney disease, stage IIIB Panniculitis 2/2 Anasarca Hypertension Diabetes mellitus Panic attacks with agoraphobia History of Alcohol Abuse Morbid obesity COMPLICATIONS/CHIEF COMPLAINT: Chf Panniculitis. HISTORY OF PRESENT ILLNESS: . 82-year-old male with past medical history of hypertension, diabetes mellitus, chronic kidney disease, panic/anxiety attacks, and cardiomegaly was brought to the emergency department via ambulance. He was accompanied by his 2 nieces Vale Beaulieu and Steph Reyeslong whop stated that the patient had been getting progressively weaker and weaker over the past 6 months. In the past 1 month he had began to develop significant lower extremity edema, and notes that he had gained over 40lbs during the last 6 months. His primary care provider had been increasing his dose of Lasix however it did not seem to slow the process much. Last night the patient stated that he got up to go to a different room in his house when he suddenly became weak, went to the floor, and then was unable to get up again. He was found in the morning by his niece, and the emergency medical personnel were called. During hospitalization, the patient was noted to have anasarca secondary to decompensated congestive heart failure with a progression of underlying chronic kidney disease. I did extensively discuss the patient's medical condition with him, and his niece at the bedside. The patient stated that he did not want further medical treatment such as IV diuretic therapy, possible hemodialysis in the future, and a prolonged hospital stay. He reported that he was under the assumption that he was coming to the hospital for, "a quick check up." However, given the extent of his anasarca and underlying CKD, the patient has opted to be comfort measures only at this time, and asked us to consult hospice. The patient was evaluated for hospice, and has bed availability today and will be transported there. I have addressed all the patient's, and his nieces concerns regarding the implications of their decision. At this time, the patient will be prepared for discharge to the hospice facility. DISCHARGE MEDICATIONS: Please see below. ALLERGIES: Please see below. PHYSICAL EXAMINATION ON DISCHARGE: VITAL SIGNS: Please see below. General Exam: Positive: No Acute Distress ENT Exam: Positive: Atraumatic, Mucous membr. moist/pink Neck Exam: Positive: JVD Chest Exam: Positive: Diminished Heart Exam: Positive: Rate Normal, Normal S1, Normal S2 Abdomen Exam: Positive: Other (Edema noted in the lower abdominal area wall from anasarca), Negative: Tenderness Male Exam: Negative: Normal Genital Exam (Significant scrotal, pelvic edema 2/2 anasarca) Extremity Exam: Positive: Tenderness (chronic venous static changes with weeping noted in the lower extremities bilaterally), Swelling (4+ pitting edema B/L) LABORATORY DATA: Please see below. IMAGING: RENAL AND BLADDER ULTRASOUND: Real-time sonographic of the kidneys performed and demonstrates both kidneys to be normal in size and echotexture, right kidney measuring 11.2 x 6.0 x 5.3 cm and left kidney 11.0 x 5.3 x 6.5 cm. There is no hydronephrosis bilaterally. No other gross renal abnormality is seen. This study is limited due to patient body habitus and immobility. There is mild free fluid in the left lower quadrant. Urinary bladder measures 13.2 x 7.5 x 8.5 cm with no mass or calculus. IMPRESSION: No hydronephrosis. No bladder abnormality seen. Mild free fluid in the left lower quadrant. PORTABLE CHEST X-RAY: SINGLE VIEW HISTORY: Fatigue. COMPARISON STUDY: July 26, 2017 FINDINGS: Moderate cardiac enlargement is again observed. This is unchanged. EKG electrodes are seen. Pulmonary vasculature is cephalized. There is no evidence of pleural effusion or pulmonary edema. No infiltrate is seen. IMPRESSION: Cardiomegaly and cephalization. No evidence of pleural effusion or pulmonary edema. No focal infiltrate. CT of the brain without IV contrast: There are no comparisons. There is no hemorrhage. There is no edema, mass effect or midline shift. There are focal zones of hypo attenuation in the periventricular white matter compatible with chronic microvascular ischemia. The ventricles and sulci are dilated compatible with chronic diffuse volume loss. The cortical stripe is unremarkable. The visualized paranasal sinuses and mastoid air cells are clear. Impression: There is no hemorrhage, acute infarct or mass. There is chronic microvascular ischemia and diffuse volume loss. PROGNOSIS: Poor ACTIVITY: As tolerated. DIET: . As tolerated DISCHARGE PLAN: DISPOSITION: 50 Hospice Home. DISCHARGE INSTRUCTIONS: Follow-up at the hospice house facility DISCHARGE CONDITION: Comfort measures only TIME SPENT ON DISCHARGE: Greater than 30 minutes. Vital Signs/I&Os Vital Signs Date Time Temp Pulse Resp B/P (MAP) Pulse Ox O2 Delivery O2 Flow Rate FiO2 11/11/17 11:13 61 118/55 11/11/17 10:54 Nasal Cannula 2.0 11/11/17 00:21 12 11/09/17 14:00 98.4 96 I&O- Last 24 Hours up to 6 AM 11/12/17 06:00 Intake Total 300 ml Output Total 100 ml Balance 200 ml Laboratory Data Labs 24H Laboratory Tests 2 11/11/17 05:00: Nucleated Red Blood Cells % (auto) 0.0, Anion Gap 5L, Glomerular Filtration Rate 37.2, Blood Urea Nitrogen 44H, Creatinine 1.87H, Sodium Level 144, Potassium Level 3.6, Chloride Level 106, Carbon Dioxide Level 33H, Calcium Level 8.3L CBC/BMP Laboratory Tests 11/11/17 05:00 Red Blood Count 4.50, Mean Corpuscular Volume 95.8, Mean Corpuscular Hemoglobin 30.4, Mean Corpuscular Hemoglobin Concent 31.8 L, Red Cell Distribution Width 16.4 H, Calcium Level 8.3 L Microbiology Microbiology 11/06/17 Blood Culture - Final, Complete NO GROWTH AFTER 5 DAYS 11/06/17 Blood Culture - Final, Complete NO GROWTH AFTER 5 DAYS Discharge Medications Scheduled PRN Alprazolam (Xanax) 0.25 Mg Tab, 0.25 MG PO TIDP PRN for ANXIETY/AGITATION Hyoscyamine Sulfate (Hyoscyamine Sulfate) 0.125 Mg Sub, 0.125 MG PO Q4HP PRN for TERMINAL SECRETIONS Use sublingually if unable to swallow Lorazepam (Lorazepam) 0.5 Mg Tab, 0.5 MG PO Q4HP PRN for ANXIETY/AGITATION Use sublingually if unable to swallow Morphine Sulfate (Morphine Sulfate) 100 Mg/5 Ml Gabrielle, 0.25-1 ML PO Q2H PRN for PAIN OR DYSPNEA Use sublingually if unable to swallow Allergies Coded Allergies: Codeine (Verified Allergy, Intermediate, hives, 11/06/17) Penicillins (Verified Allergy, Intermediate, hives, 11/06/17) PENNY LANG MD Nov 11, 2017 14:40
== END 2017-11-11 11:15 | disposition hospice, home (50) | DRG 291 ==
LOC: M ED 11:21 → EDBD 11:21 → M ED INP 15:15 → M PCU 16:28 → M MSPAV 11-08 18:12
PROVIDERS: ADMIT Family Medicine; ATTEND Internal Medicine Nephrology
DX: I13.0 Hypertensive heart and chronic kidney disease with heart failure and stage 1 through stage 4 chronic kidney disease, or unspecified chronic kidney disease (principal); I50.23 Acute on chronic systolic (congestive) heart failure; Z68.41 Body mass index [BMI] 40.0-44.9, adult; N18.4 Chronic kidney disease, stage 4 (severe); Z66 Do not resuscitate; Z51.5 Encounter for palliative care; F10.10 Alcohol abuse, uncomplicated; M79.3 Panniculitis, unspecified; R60.1 Generalized edema; E11.9 Type 2 diabetes mellitus without complications; E66.01 Morbid (severe) obesity due to excess calories; F40.01 Agoraphobia with panic disorder; Z88.5 Allergy status to narcotic agent; Z88.0 Allergy status to penicillin; Z87.891 Personal history of nicotine dependence; Z79.899 Other long term (current) drug therapy